=== PATIENT | female | born 1945 | race Caucasian/White ===

== ENCOUNTER 2021-10-02 13:15 | Emergency (ER) | payer MEDICARE, OTHER ==
[2021-10-02] MEDS ORDERED: Morphine 4 MG/ML VIAL ONE (14:03)
[2021-10-02] MEDS ORDERED: Dexamethasone 10 MG/ML VIAL ONE (15:20)
== END 2021-10-02 15:42 | disposition home or self-care (01) ==
LOC: ERS 13:15
DX: M51.36 Other intervertebral disc degeneration, lumbar region (principal); R20.2 Paresthesia of skin; M79.604 Pain in right leg; D64.9 Anemia, unspecified; E11.9 Type 2 diabetes mellitus without complications; E03.9 Hypothyroidism, unspecified; I10 Essential (primary) hypertension; E78.5 Hyperlipidemia, unspecified; Z79.01 Long term (current) use of anticoagulants; Z79.899 Other long term (current) drug therapy
CPT/HCPCS: 72131; 96374; 96375; J1100; J2270

== ENCOUNTER 2021-10-29 07:56 | Inpatient (IN) | payer MEDICARE, OTHER ==
[2021-10-29] MEDS ORDERED: Morphine 4 MG/ML VIAL ONE ×2 (08:28→09:23)
[2021-10-29] MEDS ORDERED: Ondansetron PF 4 MG/2 ML Vial ONE (08:28)
[2021-10-29 08:52] LABS: Mean Corpuscular HGB CONC 29.9 g/dL (32.0-36.0); Mean Corpuscular Hemoglobin 24.6 pg (27.0-31.0); Mean Corpuscular Volume 82.3 fL (78.0-98.0); Mean Platelet Volume 8.2 fL (7.4-10.4); Platelet Count 582 thou/uL (130-400); RBC Distribution Width 15.3 % (11.5-14.5); Red Blood Cell (RBC) Count 3.25 mill/uL (4.20-5.40); White Blood Cell (WBC) Count 21.5 thou/uL (4.8-10.8)
[2021-10-29 08:56] LABS: ALT (SGPT) 45 U/L (8-55); AST (SGOT) 39 U/L (5-34); Albumin 3.1 g/dL (3.4-4.8); Alkaline Phosphatase 193 U/L (40-110); Anion Gap 11 mmol/L (10-20); BUN (Urea Nitrogen) 26 mg/dL (9.8-20.1); Bilirubin, Total 0.5 mg/dL (0.2-1.2); Calc. Creatinine Clearance 0 mL/min (70-130); Calcium 9.6 mg/dL (7.8-10.44); Carbon Dioxide 36 mmol/L (23-31); Chloride 95 mmol/L (98-107); Estimated GFR 57; Glucose 94 mg/dL (83-110); Potassium 4.1 mmol/L (3.5-5.1); Protein, Total 7.1 g/dL (5.8-8.1); Sodium 138 mmol/L (136-145)
[2021-10-29 09:26] LABS: Band 1 % (5-11); Lymphocytes 8 % (21-51); MDiff Complete? YES; Monocytes 10 % (0-10); Neutrophil 81 % (42-75); Platelet Morphology Comment Appears Increased; Polychromasia SLIGHT = 2-3 cells (100X) (0-2/hpf)
[2021-10-29 10:37] LABS: Bacteria/HPF 1+ HPF (None Seen); Bilirubin Negative (Negative); Blood, Urine Negative (Negative); Clarity Clear (Clear); Glucose, Urine (Dipstick) Normal (Negative); Ketone, Urine Negative (Negative); Leukocyte 75 Leu/uL (Negative); Nitrite Negative (Negative); Protein, Urine (Dipstick) 30 mg/dL (Neg-Trace); RBC/HPF 0-3 HPF (0-3); Specific Gravity, Urine 1.021 (1.002-1.036); Squamous Epithelial 0-3 HPF (0-3); Urobilinogen Normal mg/dL (Less than 2); pH, Urine 5.5 (5.0-9.0)
[2021-10-29] MEDS ORDERED: cefTRIAXone\\ROCEPHIN 2 GM VIAL ONE (11:57)
[2021-10-29] MEDS ORDERED: Dextrose 5% in Water 1,000 ML IV PRN (12:55)
[2021-10-29] MEDS ORDERED: Dextrose 50% Abboject 50 ML SYRINGE SLOW IVP PRN (12:55)
[2021-10-29] MEDS ORDERED: Sodium Chloride 0.9% 1,000 ML IV SCH (13:00)
[2021-10-29 15:58] VITALS: BMI 48.7
[2021-10-29] MEDS: Morphine 2 MG/ML VIAL SLOW IVP PRN ×2 (16:13→21:58)
[2021-10-29] MEDS: Gabapentin 100 MG CAP PO SCH ×2 (16:14→19:53)
[2021-10-29] MEDS: traMADol HCl 50 MG TAB PO SCH ×2 (17:18→23:45)
[2021-10-29] MEDS: hydrALAZINE 25 MG TAB PO SCH (19:50)
[2021-10-29] MEDS: Metoprolol Tartrate 25 MG TAB PO SCH (19:51)
[2021-10-29] MEDS: Atorvastatin Calcium 20 MG TAB PO SCH (19:52)
[2021-10-29] MEDS: FLUoxetine HCl 20 MG CAP PO SCH (19:52)
[2021-10-29] MEDS ORDERED: Senokot 8.6 MG TAB PO SCH (21:00)
[2021-10-29] MEDS: Cepastat Lozenges 1 LOZ PO PRN ×2 (21:57→23:46)
[2021-10-30] MEDS: Morphine 2 MG/ML VIAL SLOW IVP PRN ×2 (02:04→08:36)
[2021-10-30] MEDS: Cepastat Lozenges 1 LOZ PO PRN (02:05)
[2021-10-30] MEDS: Acetaminophen 325 MG TAB PO PRN ×4 (02:05→18:56)
[2021-10-30] MEDS: traMADol HCl 50 MG TAB PO SCH ×4 (05:53→18:57)
[2021-10-30] MEDS: Levothyroxine 150 MCG TAB PO SCH (05:54)
[2021-10-30 07:26] LABS: ALT (SGPT) 32 U/L (8-55); AST (SGOT) 25 U/L (5-34); Albumin 2.4 g/dL (3.4-4.8); Alkaline Phosphatase 149 U/L (40-110); Anion Gap 13 mmol/L (10-20); BUN (Urea Nitrogen) 27 mg/dL (9.8-20.1); Bilirubin, Total 0.3 mg/dL (0.2-1.2); Calc. Creatinine Clearance 88 mL/min (70-130); Calcium 8.8 mg/dL (7.8-10.44); Carbon Dioxide 32 mmol/L (23-31); Chloride 95 mmol/L (98-107); Estimated GFR 49; Globulin 3.5 g/dL (2.4-3.5); Glucose 179 mg/dL (83-110); Potassium 4.2 mmol/L (3.5-5.1); Protein, Total 5.9 g/dL (5.8-8.1); Sodium 136 mmol/L (136-145)
[2021-10-30 07:29] LABS: #Basophils 0.1 thou/uL (0.0-0.2); #Eosinphils 0.3 thou/uL (0.0-0.7); #Lymphocytes 2.1 thou/uL (1.20-3.40); #Monocytes 1.2 thou/uL (0.11-0.59); #Neutrophils 9.6 thou/uL (1.40-6.50); %Basophils 0.6 % (0.0-1.0); %Eosinophils 2.5 % (0.0-10.0); %Lymphocytes 15.8 % (21.0-51.0); %Monocytes 8.9 % (0.0-10.0); %Neutrophils 72.1 % (42.0-75.0); Hemoglobin 6.6 g/dL (12.0-16.0); Mean Corpuscular HGB CONC 28.6 g/dL (32.0-36.0); Mean Corpuscular Hemoglobin 23.6 pg (27.0-31.0); Mean Corpuscular Volume 82.4 fL (78.0-98.0); Mean Platelet Volume 8.2 fL (7.4-10.4); Platelet Count 458 thou/uL (130-400); RBC Distribution Width 15.3 % (11.5-14.5); Red Blood Cell (RBC) Count 2.78 mill/uL (4.20-5.40); White Blood Cell (WBC) Count 13.3 thou/uL (4.8-10.8)
[2021-10-30] MEDS: Liothyronine Sodium 5 MCG TAB PO SCH (08:37)
[2021-10-30] MEDS: Furosemide 40 MG TAB PO SCH (08:37)
[2021-10-30] MEDS: Gabapentin 100 MG CAP PO SCH ×3 (08:38→20:46)
[2021-10-30] MEDS: FLUoxetine HCl 20 MG CAP PO SCH ×2 (08:38→20:46)
[2021-10-30] MEDS: Metoprolol Tartrate 25 MG TAB PO SCH ×2 (08:38→20:47)
[2021-10-30] MEDS: hydrALAZINE 25 MG TAB PO SCH ×2 (08:38→20:47)
[2021-10-30] MEDS: Enoxaparin Sodium 40 MG/0.4 ML SYRINGE SC SCH (08:39)
[2021-10-30] MEDS: HumaLOG 300 UNITS/3 ML VIAL SC PRN ×2 (13:43→19:20)
[2021-10-30] MEDS: cefTRIAXone\\ROCEPHIN 1 GM in Sodium Chloride 0.9% 100 ML IVPB SCH (17:12)
[2021-10-30 18:17] LABS: Hemoglobin 7.7 g/dL (12.0-16.0)
[2021-10-30] MEDS: Atorvastatin Calcium 20 MG TAB PO SCH (20:46)
[2021-10-31] MEDS: traMADol HCl 50 MG TAB PO SCH ×5 (00:04→23:41)
[2021-10-31] MEDS: Levothyroxine 150 MCG TAB PO SCH (04:49)
[2021-10-31 06:42] LABS: Hemoglobin 7.3 g/dL (12.0-16.0); Mean Corpuscular HGB CONC 30.1 g/dL (32.0-36.0); Mean Corpuscular Hemoglobin 25.1 pg (27.0-31.0); Mean Corpuscular Volume 83.2 fL (78.0-98.0); Mean Platelet Volume 8.1 fL (7.4-10.4); Platelet Count 481 thou/uL (130-400); RBC Distribution Width 14.9 % (11.5-14.5); Red Blood Cell (RBC) Count 2.91 mill/uL (4.20-5.40); White Blood Cell (WBC) Count 10.8 thou/uL (4.8-10.8)
[2021-10-31] MEDS: Metoprolol Tartrate 25 MG TAB PO SCH ×2 (09:16→20:50)
[2021-10-31] MEDS: Furosemide 40 MG TAB PO SCH (09:16)
[2021-10-31] MEDS: Calcium Carbonate 600 MG + Vit D TAB PO SCH (09:16)
[2021-10-31] MEDS: hydrALAZINE 25 MG TAB PO SCH ×2 (09:17→20:51)
[2021-10-31] MEDS: FLUoxetine HCl 20 MG CAP PO SCH ×2 (09:18→20:50)
[2021-10-31] MEDS: Gabapentin 100 MG CAP PO SCH ×3 (09:18→20:51)
[2021-10-31] MEDS: Enoxaparin Sodium 40 MG/0.4 ML SYRINGE SC SCH (09:19)
[2021-10-31] MEDS: Liothyronine Sodium 5 MCG TAB PO SCH (09:31)
[2021-10-31] MEDS: cefTRIAXone\\ROCEPHIN 1 GM in Sodium Chloride 0.9% 100 ML IVPB SCH (12:17)
[2021-10-31] MEDS: Atorvastatin Calcium 20 MG TAB PO SCH (20:51)
[2021-11-01] MEDS: Levothyroxine 150 MCG TAB PO SCH (05:29)
[2021-11-01] MEDS: traMADol HCl 50 MG TAB PO SCH ×4 (05:30→23:55)
[2021-11-01 06:30] LABS: Anion Gap 14 mmol/L (10-20); BUN (Urea Nitrogen) 23 mg/dL (9.8-20.1); Calc. Creatinine Clearance 89 mL/min (70-130); Calcium 9.1 mg/dL (7.8-10.44); Carbon Dioxide 33 mmol/L (23-31); Chloride 97 mmol/L (98-107); Estimated GFR 50; Glucose 124 mg/dL (83-110); Potassium 4.8 mmol/L (3.5-5.1); Sodium 139 mmol/L (136-145)
[2021-11-01 06:57] LABS: Hemoglobin 7.5 g/dL (12.0-16.0); Mean Corpuscular HGB CONC 29.8 g/dL (32.0-36.0); Mean Corpuscular Hemoglobin 24.6 pg (27.0-31.0); Mean Corpuscular Volume 82.6 fL (78.0-98.0); Mean Platelet Volume 8.1 fL (7.4-10.4); Platelet Count 495 thou/uL (130-400); RBC Distribution Width 15.3 % (11.5-14.5); Red Blood Cell (RBC) Count 3.05 mill/uL (4.20-5.40); White Blood Cell (WBC) Count 10.9 thou/uL (4.8-10.8)
[2021-11-01] MEDS: FLUoxetine HCl 20 MG CAP PO SCH ×2 (09:43→20:02)
[2021-11-01 09:47] LABS: #Eosinphils 0.5 thou/uL (0.0-0.7); #Lymphocytes 2.3 thou/uL (1.20-3.40); %Basophils 0.3 % (0.0-1.0); %Lymphocytes 21.2 % (21.0-51.0); %Monocytes 9.3 % (0.0-10.0); %Neutrophils 64.2 % (42.0-75.0); Hypochromia SLIGHT = 6-15 cells (100X) (0-5/hpf); MDiff Complete? YES; Platelet Morphology Comment Appears Increased; Polychromasia SLIGHT = 2-3 cells (100X) (0-2/hpf)
[2021-11-01] MEDS: Liothyronine Sodium 5 MCG TAB PO SCH (09:53)
[2021-11-01] MEDS: Calcium Carbonate 600 MG + Vit D TAB PO SCH (09:53)
[2021-11-01] MEDS: Gabapentin 100 MG CAP PO SCH ×3 (09:53→20:02)
[2021-11-01] MEDS: Furosemide 40 MG TAB PO SCH (09:54)
[2021-11-01] MEDS: Metoprolol Tartrate 25 MG TAB PO SCH ×2 (09:54→20:02)
[2021-11-01] MEDS: hydrALAZINE 25 MG TAB PO SCH ×2 (09:55→20:02)
[2021-11-01] MEDS ORDERED: Polyethylene Glycol 3350 17 GM Packet PO SCH (12:00)
[2021-11-01] MEDS: cefTRIAXone\\ROCEPHIN 1 GM in Sodium Chloride 0.9% 100 ML IVPB SCH (12:12)
[2021-11-01] MEDS: Atorvastatin Calcium 20 MG TAB PO SCH (20:02)
[2021-11-01] MEDS: Senokot S 8.6-50 MG TAB PO SCH (20:02)
[2021-11-01] MEDS: Acetaminophen 325 MG TAB PO PRN (23:55)
[2021-11-02] MEDS: Morphine 2 MG/ML VIAL SLOW IVP PRN (01:17)
[2021-11-02] MEDS: Levothyroxine 150 MCG TAB PO SCH (06:05)
[2021-11-02] MEDS: traMADol HCl 50 MG TAB PO SCH ×2 (06:05→11:47)
[2021-11-02 08:41] VITALS: BP 170/82; TEMP 97.9
[2021-11-02] MEDS ORDERED: Polyethylene Glycol 3350 17 GM Packet PO SCH (09:00)
[2021-11-02 09:02] LABS: #Eosinphils 0.4 thou/uL (0.0-0.7); #Lymphocytes 2.2 thou/uL (1.20-3.40); #Neutrophils 6.1 thou/uL (1.40-6.50); %Eosinophils 4.6 % (0.0-10.0); %Lymphocytes 22.3 % (21.0-51.0); %Monocytes 10.4 % (0.0-10.0); %Neutrophils 62.7 % (42.0-75.0); Hemoglobin 7.7 g/dL (12.0-16.0); Mean Corpuscular HGB CONC 29.1 g/dL (32.0-36.0); Mean Corpuscular Hemoglobin 24.3 pg (27.0-31.0); Mean Corpuscular Volume 83.3 fL (78.0-98.0); Mean Platelet Volume 8.2 fL (7.4-10.4); Platelet Count 498 thou/uL (130-400); RBC Distribution Width 15.2 % (11.5-14.5); Red Blood Cell (RBC) Count 3.18 mill/uL (4.20-5.40); White Blood Cell (WBC) Count 9.7 thou/uL (4.8-10.8)
[2021-11-02 09:22] LABS: Anion Gap 15 mmol/L (10-20); BUN (Urea Nitrogen) 25 mg/dL (9.8-20.1); Calc. Creatinine Clearance 84 mL/min (70-130); Carbon Dioxide 29 mmol/L (23-31); Chloride 97 mmol/L (98-107); Estimated GFR 46; Glucose 101 mg/dL (83-110); Potassium 4.9 mmol/L (3.5-5.1); Sodium 136 mmol/L (136-145)
[2021-11-02] MEDS: Senokot S 8.6-50 MG TAB PO SCH (10:21)
[2021-11-02] MEDS: Liothyronine Sodium 5 MCG TAB PO SCH (10:21)
[2021-11-02] MEDS: FLUoxetine HCl 20 MG CAP PO SCH (10:21)
[2021-11-02] MEDS: hydrALAZINE 25 MG TAB PO SCH (10:22)
[2021-11-02] MEDS: Gabapentin 100 MG CAP PO SCH ×2 (10:22→14:11)
[2021-11-02] MEDS: Calcium Carbonate 600 MG + Vit D TAB PO SCH (10:22)
[2021-11-02] MEDS: Furosemide 40 MG TAB PO SCH (10:22)
[2021-11-02] MEDS: Metoprolol Tartrate 25 MG TAB PO SCH (10:23)
[2021-11-02] MEDS: cefTRIAXone\\ROCEPHIN 1 GM in Sodium Chloride 0.9% 100 ML IVPB SCH (11:48)
[2021-11-02] MEDS ORDERED: Methyl Salicylate/Menthol 85 GM TUBE TOP SCH (15:00)
== END 2021-11-02 17:40 | DRG 811 ==
LOC: ERS 07:56 → ERHOLD 12:26 → T4-A 14:42 → OBSVTOIN 10-30 12:49
PROVIDERS: ADMIT Internal Medicine; ATTEND Family Medicine
PROC: 30233N1 Transfusion of Nonautologous Red Blood Cells into Peripheral Vein, Percutaneous Approach (ICD-10-PCS; principal; 2021-10-30)
DX: D46.9 Myelodysplastic syndrome, unspecified (principal); G93.41 Metabolic encephalopathy; N39.0 Urinary tract infection, site not specified; Z68.42 Body mass index [BMI] 45.0-49.9, adult; Z16.24 Resistance to multiple antibiotics; J96.11 Chronic respiratory failure with hypoxia; I13.0 Hypertensive heart and chronic kidney disease with heart failure and stage 1 through stage 4 chronic kidney disease, or unspecified chronic kidney disease; E66.01 Morbid (severe) obesity due to excess calories; E11.649 Type 2 diabetes mellitus with hypoglycemia without coma; E78.5 Hyperlipidemia, unspecified; I50.9 Heart failure, unspecified; E03.9 Hypothyroidism, unspecified; D63.1 Anemia in chronic kidney disease; F32.A Depression, unspecified; E11.22 Type 2 diabetes mellitus with diabetic chronic kidney disease; D63.8 Anemia in other chronic diseases classified elsewhere; M16.12 Unilateral primary osteoarthritis, left hip; M47.816 Spondylosis without myelopathy or radiculopathy, lumbar region; B96.89 Other specified bacterial agents as the cause of diseases classified elsewhere; N18.30 Chronic kidney disease, stage 3 unspecified; Z20.822 Contact with and (suspected) exposure to COVID-19; K59.00 Constipation, unspecified; Z88.8 Allergy status to other drugs, medicaments and biological substances; Z79.01 Long term (current) use of anticoagulants; Z90.710 Acquired absence of both cervix and uterus; Z79.899 Other long term (current) drug therapy; Z86.718 Personal history of other venous thrombosis and embolism
CPT/HCPCS: 36415; 36416; 36430; 51701; 80048; 80053; 81003; 81015; 83605; 85025; 85027; 86850; 86900; 86901; 87040; 87077; 87086; 87186; 96372; 96374; 96375; 96376; G0378; J0696; J1650; J1815; J2270; J2405; J3490; J7050; P9016; U0003; U0005